=== PATIENT | female | born 1980 | race Caucasian/White ===

== ENCOUNTER → 2018-01-23 | Outpatient (CLI) | payer OTHER ==
--- NOTE | 2018-01-23 19:09 | Diagnostic Imaging Report ---
INDICATION: Routine screening. COMPARISON: No prior mammograms are available for comparison. This is a baseline study. The current study was also evaluated with a Computer Aided Detection (CAD) system. FINDINGS: Both breasts are heterogeneously dense, limiting the sensitivity of mammography. No spiculated mass or malignant appearing microcalcifications are seen. The axillae are unremarkable. IMPRESSION: No mammographic features suspicious for malignancy are identified. ACR BI-RADS Category 1: Negative. Result letter will be mailed to the patient. Note: At least 10% of breast cancer is not imaged by mammography. Dictated by: Dictated on workstation # [id number]
== END ==
LOC: RAD 09:26
PROVIDERS: ATTEND Family Medicine
DX: Z12.31 Encounter for screening mammogram for malignant neoplasm of breast (principal)
CPT/HCPCS: 77067

== ENCOUNTER 2018-11-16 10:41 | Outpatient (RCR) | payer OTHER | END 2019-02-14 | disposition home or self-care (01) | LOC: CARD 10:41 | PROVIDERS: ATTEND Nurse Practitioner Family | DX: R00.2 Palpitations (principal) | CPT/HCPCS: 93225; 93226 ==

== ENCOUNTER → 2019-01-02 | Outpatient (CLI) | payer OTHER ==
[~2019-01-02] MED LIST: GADOBUTROL 7.5 MMOL/7.5 ML (GADAVIST) VIAL IV ONE
--- NOTE | 2019-01-02 10:58 | Diagnostic Imaging Report ---
CLINICAL INDICATION: Patient has history of migraine headaches, recent changes in vision, blurry vision and episodes of aphasia with slurred speech lasting 20 minutes. EXAM: MRI of the brain performed without and with 7 cc of Gadavist IV contrast. Sequences include axial DWI, ADC map, axial gradient echo, axial T2, axial FLAIR, axial T1, axial T1 post IV contrast, coronal T1 fat-sat post IV contrast, and sagittal T1 post IV contrast. COMPARISON: None. FINDINGS: There is no evidence of acute cerebral infarct, intracranial hemorrhage, or gross mass effect. There is no abnormal IV contrast enhancement. There are a few focal areas of high T2 signal white matter changes in the bilateral frontal lobe subcortical regions, likely inconsequential. The brain parenchymal volume appears appropriate for patient's age. There is normal gaines-white matter distinction. There is no significant midline shift or herniation. The [place] vascular structures show no gross abnormality as visualized. The pituitary gland, sella, and suprasellar regions are unremarkable as visualized. There is no evidence of hydrocephalus. The basal cisterns are unremarkable. The skull, extracranial soft tissue, and orbits are unremarkable. The paranasal sinuses are unremarkable. Temporal bones show no significant abnormality. IMPRESSION: 1: There are a few, nonspecific, focal areas of high T2 signal white matter changes involving the bilateral frontal lobe subcortical regions, which may be inconsequential. These may be seen in patients with chronic migraine headaches. 2: Otherwise, unremarkable MRI of the brain. Dictated by: Dictated on workstation # [id number]
== END ==
LOC: RAD 09:15
PROVIDERS: ATTEND Nurse Practitioner Family
DX: H53.8 Other visual disturbances (principal); G43.909 Migraine, unspecified, not intractable, without status migrainosus; R90.82 White matter disease, unspecified; R47.01 Aphasia
CPT/HCPCS: 70553

== ENCOUNTER → 2022-12-01 | Outpatient (CLI) | payer BC ==
--- NOTE | 2022-12-01 16:28 | Diagnostic Imaging Report ---
Indication: Right foot pain. Time of Exam: 12:49 PM 3 views of the right foot were obtained. Metatarsals are intact. Phalanges are intact. Midfoot and hindfoot are unremarkable apart from a small plantar calcaneal spur. No fractures are seen. Impression: No acute bony abnormality is detected. Dictated by: Dictated on workstation # [id number]
== END ==
LOC: RAD FS 12:24
PROVIDERS: ATTEND Registered Nurse Emergency
DX: M79.671 Pain in right foot (principal)
CPT/HCPCS: 73630

== ENCOUNTER → 2023-02-15 | Outpatient (CLI) | payer BC ==
--- NOTE | 2023-02-15 17:31 | Diagnostic Imaging Report ---
INDICATION: Neck pain. FINDINGS: Frontal and lateral cervical radiographs are performed. Cervical statures are normal. The alignment is anatomic. Prevertebral space is normal. No fracture identified. IMPRESSION: Unremarkable cervical spinal radiographs. Dictated by: Dictated on workstation # [id number]
== END ==
LOC: RAD FS 17:00
PROVIDERS: ATTEND Registered Nurse Emergency
DX: M54.2 Cervicalgia (principal)
CPT/HCPCS: 72040

== ENCOUNTER → 2023-06-23 | Outpatient (CLI) | payer BC ==
[2023-06-23 09:56] LABS: BILIRUBIN,URINE NEGATIVE (NEGATIVE); CLARITY,URINE CLEAR; COLOR,URINE YELLOW; GLUCOSE, URINE (UA) NEGATIVE (NEGATIVE); KETONES,URINE NEGATIVE (NEGATIVE); LEUKOCYTE ESTERASE ,URINE TRACE (NEGATIVE); NITRITE,URINE NEGATIVE (NEGATIVE); PH,URINE 5.5 (5-9); PROTEIN,URINE NEGATIVE (NEGATIVE)
[2023-06-23 10:01] LABS: BACTERIA,URINE MODERATE /HPF
== END ==
LOC: LAB FS 09:46
PROVIDERS: ATTEND Registered Nurse Emergency
DX: R31.9 Hematuria, unspecified (principal)
CPT/HCPCS: 81000; 87088

== ENCOUNTER → 2023-06-26 | Outpatient (CLI) | payer BC ==
--- NOTE | 2023-06-26 15:27 | Diagnostic Imaging Report ---
INDICATION: Sacrococcygeal disorder, pain. COMPARISON: None available. TECHNIQUE: 3 radiographs of the sacrum and coccyx dated 06/26/2023 FINDINGS: No acute fracture or dislocation. No destructive osseous process. Sacroiliac joints appear intact. No focal angulation of the sacrum or coccyx. No suspicious radiopaque foreign body. IMPRESSION: No acute osseous abnormality. Dictated by: Dictated on workstation # [id number]
== END ==
LOC: RAD FS 09:41
PROVIDERS: ATTEND Registered Nurse Emergency
DX: M53.3 Sacrococcygeal disorders, not elsewhere classified (principal)
CPT/HCPCS: 72220

== ENCOUNTER → 2023-09-11 | Outpatient (CLI) | payer BC ==
--- NOTE | 2023-09-11 10:38 | Diagnostic Imaging Report ---
Clinical Indication: Patient had a horse accident in June this year and loss of consciousness. Patient having headaches and dizziness. Exam: MRI of the brain performed without IV contrast. Sequences include axial DWI, ADC map, axial T1, axial T2, axial FLAIR, coronal gradient echo, and sagittal T1. Comparison: MRI of the brain with and without contrast dated 01/02/2019. Findings: There is no evidence of acute cerebral infarct, intracranial hemorrhage, or gross mass effect. The brain parenchymal volume appears appropriate for patient's age. Stable few nonspecific focal areas of high T2 signal white matter changes involving the subcortical regions of both frontal lobes. There is normal gaines-white matter distinction. There is no significant midline shift or herniation. Visualized [place] vascular structures are unremarkable. There is no evidence of hydrocephalus. The basal cisterns are unremarkable. The skull, extracranial soft tissue, and orbits are unremarkable. The paranasal sinuses are unremarkable. Temporal bones show no significant abnormality. IMPRESSION: 1: Stable MRI of the brain with no interval evidence of acute intracranial process. 2: Stable nonspecific, few focal areas of high T2 signal white matter changes involving the subcortical regions of both frontal lobes. These findings may be seen in patients with history of migraine headaches. Dictated by: Dictated on workstation # [id number]
== END ==
LOC: RAD 09:05
DX: S06.2X9D Diffuse traumatic brain injury with loss of consciousness of unspecified duration, subsequent encounter (principal); H53.9 Unspecified visual disturbance; X58.XXXD Exposure to other specified factors, subsequent encounter
CPT/HCPCS: 70551